=== PATIENT | female | born 1965 | race Caucasian/White ===

== ENCOUNTER → 2020-04-04 13:21 | Outpatient (BNVA) | payer MEDICAID, SELFPAY | PROVIDERS: PCP Family Medicine; Visit Provider Physician Assistant Medical | DX: Z76.89 Persons encountering health services in other specified circumstances (principal) | CPT/HCPCS: G0296 ==

== ENCOUNTER 2020-05-02 14:15 | Outpatient (REF) | payer MEDICAID, SELFPAY ==
--- NOTE | ~2020-05-02 | CT_ITS ---
EXAMINATION: CT CHEST SCREENING CLINICAL INFORMATION: Nicotine dependence. COMPARISON: Chest x-ray 02/07/2015. TECHNIQUE: Multidetector volumetric CT imaging of the chest is performed without contrast using low dose technique. Additional 2D coronal and sagittal reformatted images and axial 3D maximum intensity projection (MIP) images are generated on the CT workstation. This CT examination was performed using dose optimization techniques as appropriate, variously including the following: *Automated exposure control *Adjustment of mA and/or kV according to patient size (this includes techniques or standardized protocols for targeted exams where dose is matched to indication/reason for exam; i.e. extremities or head) *Use of iterative reconstruction technique DLP: 43 mGy-cm FINDINGS: LUNGS: There is centrilobular emphysema with bilateral medial apical cysts. There are no pulmonary nodules, mass, consolidation or groundglass density. There are punctate calcified nodules. 2 mm nodule left lower lobe adjacent to major fissure axial image 37, 1 mm nodule right lower lobe medially axial image 36/4, 1 minute calcification left lower lobe along the posterior pericardium, axial image 43/4 and 2 mm nodule in the lingula axial image 48/4. No noncalcified nodules visualized. MEDIASTINUM: Heart size and the great vessels are normal caliber. The central trachea and bronchi are widely patent. The thyroid lobes are symmetrical and normal. PLEURA: There is no pleural effusion. No pleural mass or thickening. AXILLA: No lymphadenopathy. UPPER ABDOMEN: Visualized liver, spleen, pancreas and bilateral adrenal glands are unremarkable. The gallbladder has been surgically removed. OSSEOUS STRUCTURES: No lytic or sclerotic process seen. CT/CT lung screening IMPRESSION: Diffuse emphysema calcified scattered nodules. No abnormal lymphadenopathy. ASSESSMENT: Lung-RADS category 2: Benign RECOMMENDATION: Low dose annual CT chest.
== END 2020-05-02 14:16 | disposition home or self-care (01) ==
LOC: HO.CT 14:15
PROVIDERS: PCP Family Medicine; Visit Provider Physician Assistant Medical
DX: Z12.2 Encounter for screening for malignant neoplasm of respiratory organs (principal); F17.210 Nicotine dependence, cigarettes, uncomplicated
CPT/HCPCS: 71271

== ENCOUNTER 2021-05-20 12:50 | Outpatient (REF) | payer MEDICAID, SELFPAY ==
--- NOTE | ~2021-05-20 | MM_ITS ---
EXAMINATION: MM SCREENING DIGITAL BREAST TOMOSYNTHESIS, BILATERAL CLINICAL INFORMATION: Screening. Asymptomatic. The lifetime risk of breast cancer based on the Tyrer-Cuzick Model is 5%. COMPARISON: Mammography: 10/05/2019, 09/29/2018, 09/16/2017 TECHNIQUE: Digital breast tomosynthesis is performed in both the craniocaudal and mediolateral oblique views along with computer-aided detection (CAD). Synthesized 2D images are generated from the tomosynthesis. FINDINGS: There are scattered areas of fibroglandular density (ACR BI-RADS breast composition Category b). There are no significant masses, abnormal calcifications, or other abnormalities. Parenchymal pattern is similar to prior studies. There is no developing density or architectural abnormality. There are scattered shifting fibroglandular parenchymal densities overall similar to prior studies. The axilla and skin contours are unremarkable. No significant changes. MM/MM tomosynthesis screening BI IMPRESSION: No mammographic evidence of malignancy. ASSESSMENT: BI-RADS 1: Negative RECOMMENDATION: Routine annual mammography screening. This patient's information was entered into a reminder system with a target due date for their next mammogram.
== END 2021-05-20 12:51 | disposition home or self-care (01) ==
LOC: HO.MAMMO 12:50
PROVIDERS: Visit Provider Family Medicine
DX: Z12.31 Encounter for screening mammogram for malignant neoplasm of breast (principal)
CPT/HCPCS: 77063; 77067

== ENCOUNTER 2022-02-23 17:21 | Emergency (ER) | payer MEDICAID, SELFPAY ==
--- NOTE | ~2022-02-23 | XR_ITS ---
EXAMINATION: XR CHEST CLINICAL INFORMATION: Chest pain COMPARISON: 05/02/2020 TECHNIQUE: 2 views of the chest were obtained. FINDINGS: The lungs are hyperinflated, suspicious for underlying COPD. No focal consolidation is seen. No evidence of pneumothorax, pleural effusion, or pulmonary edema. The cardiomediastinal contour is unremarkable. No acute osseous findings are seen. XR/XR chest 2V IMPRESSION: No acute cardiopulmonary findings. Hyperinflated lungs suspicious for COPD.
[2022-02-23 19:26] VITALS: BP 125/86; PULSE 73; RESP 18; TEMP 36.1; O2SAT 95; BMI 27.4
--- NOTE | 2022-02-23 19:26 | ED.GENADULT ---
HPI - General Adult General Chief complaint: General Medical <Sindi Bourgeois MD - Last Filed: 02/23/22 19:32> Stated complaint: coughing, chest pain, loss voice <Sindi Bourgeois MD - Last Filed: 02/23/22 19:32> Time Seen by Provider: 02/23/22 21:55 <Sindi Bourgeois MD - Last Filed: 02/23/22 19:32> Source: patient <CYRIL Mejia - Last Filed: 02/23/22 23:00> Mode of arrival: ambulatory <CYRIL Mejia - Last Filed: 02/23/22 23:00> History of Present Illness HPI narrative: 56-year-old female with past medical history of liver cirrhosis, HTN, nicotine dependence, presenting to the ED complaining of sore throat, productive cough, chills, and orthopnea x1 week. Reports coughing/SOB waking her up at night. Also reports chest discomfort with cough. Denies fever, ear pain, abdominal pain, nausea/vomiting, pedal edema, calf tenderness <CYRIL Mejia - Last Filed: 02/23/22 23:00> Onset (ago): week(s) <CYRIL Mejia - Last Filed: 02/23/22 23:00> Related Data Home medications: Previous Rx's Medication Instructions Recorded albuterol sulfate 90 mcg/actuation 2 puff inhalation Q4-6H PRN 02/23/22 aerosol inhaler shortness of breath or wheezing #6.7 grams azithromycin 250 mg tablet See Rx Instructions PO .COMPLEX #6 02/23/22 tabs benzonatate 100 mg capsule 100 mg PO TID PRN cough #14 caps 02/23/22 <Sindi Bourgeois MD - Last Filed: 02/23/22 19:32> Allergies/adverse reactions: Allergies Allergy/AdvReac Type Severity Reaction Status Date / Time No Known Allergies Allergy Mild NKA Verified 02/23/22 19:32 <Sindi Bourgeois MD - Last Filed: 02/23/22 19:32> Review of Systems Review of Systems: Constitutional: No Fever, + Chills, No Fatigue, No Malaise ENT/Mouth: No Ear Pain, No Nasal Congestion, No Sinus Pain, No Hoarseness, + sore throat, + Rhinorrhea, No Swallowing Difficulty Eyes: No Eye Pain, No Swelling, No Redness, No Discharge, No Vision Changes Cardiovascular: + Chest Pain when coughing, + SOB, No Dyspnea on Exertion, + Orthopnea, No Edema, No Palpitations Respiratory: + Cough, + Sputum, No Wheezing, + Dyspnea Gastrointestinal: No Nausea, No Vomiting, No Diarrhea, No Constipation, No Abdominal pain Genitourinary: No Dysuria, No Urinary Frequency, No Hematuria, No Urinary Incontinence/retention, No Urgency, No Flank Pain Musculoskeletal: No joint pain, No Myalgias, No Joint Swelling Skin: No Skin Lesions, No rash Neuro: No Weakness, No Dizziness, No Headache <CYRIL Mejia - Last Filed: 02/23/22 23:00> Yes all other systems are reviewed and are negative <CYRIL Mejia - Last Filed: 02/23/22 23:00> Constitutional: Constitutional: Reports as per HPI <CYRIL Mejia - Last Filed: 02/23/22 23:00> FOR[facility]LY [facility], [facility] Past Medical History Attestation statement: The following information was validated with the patient. <CYRIL Mejia - Last Filed: 02/23/22 23:00> Medical History: Medical History Cirrhosis of liver Hypertension Nicotine dependence, cigarettes, uncomplicated Tubular adenoma of colon <Sindi Bourgeois MD - Last Filed: 02/23/22 19:32> Surgical History: Surgical History Hx laparoscopic cholecystectomy <Sindi Bourgeois MD - Last Filed: 02/23/22 19:32> Social History Social History: Social History Alcohol intake: current Alcohol intake frequency: does not drink Cigarette Packs Per Day: 1 Cigarettes Per Day: 20 Years Smoked: 38, onset 13yo Advance Directives: No Advance Directives Information Provided: No <Sindi Bourgeois MD - Last Filed: 02/23/22 19:32> Physical Exam ED Vital Signs: Vital Signs - 24 hr 02/23/22 19:26 Temperature 97 F Pulse Rate 73 Respiratory Rate 18 Blood Pressure 125/86 Pulse Oximetry 95 Oxygen Delivery Method Room Air BMI result Body Mass Index 27.4 <Sindi Bourgeois MD - Last Filed: 02/23/22 19:32> Vital Signs - 24 hr 02/23/22 19:26 Temperature 97 F Pulse Rate 73 Respiratory Rate 18 Blood Pressure 125/86 Pulse Oximetry 95 Oxygen Delivery Method Room Air BMI result Body Mass Index 27.4 <CYRIL Mejia - Last Filed: 02/23/22 23:00> Const General: cooperative <CYRIL Mejia - Last Filed: 02/23/22 23:00> Orientation/consciousness: patient oriented x3 <CYRIL Mejia - Last Filed: 02/23/22 23:00> Limitations: no limitations <CYRIL Mejia - Last Filed: 02/23/22 23:00> HENMT Head: Yes normal to inspection and Yes atraumatic <CYRIL Mejia - Last Filed: 02/23/22 23:00> Ears: hearing grossly normal bilaterally <CYRIL Mejia - Last Filed: 02/23/22 23:00> General nose exam: Normal external nose present <CYRIL Mejia - Last Filed: 02/23/22 23:00> Face and sinus: Yes normal facial exam <CYRIL Mejia - Last Filed: 02/23/22 23:00> Throat: Yes posterior oropharynx normal, Yes tonsils normal, Yes uvula midline and No peritonsillar mass <CYRIL Mejia - Last Filed: 02/23/22 23:00> Eyes General: appearance normal, both eyes and all related structures <CYRIL Mejia - Last Filed: 02/23/22 23:00> EOM: EOMs intact bilaterally <CYRIL Mejia - Last Filed: 02/23/22 23:00> Neck Neck: Yes normal visual inspection and Yes no meningeal signs <CYRIL Mejia - Last Filed: 02/23/22 23:00> Resp Effort & Inspection: normal respiratory effort and no respiratory distress <CYRIL Mejia - Last Filed: 02/23/22 23:00> Auscultation: clear to auscultation bilaterally, no crackles, no rales and no rhonchi <Aminata Funk PA - Last Filed: 02/23/22 23:00> Cardio Rate: regular rate <Aminata Funk PA - Last Filed: 02/23/22 23:00> Heart sounds: S1 normal heart sound present and S2 normal heart sound present <Aminata Funk PA - Last Filed: 02/23/22 23:00> GI Inspection: Yes normal to inspection <Aminata Funk PA - Last Filed: 02/23/22 23:00> Palpation (GI): Soft to palpation, nontender, no guarding and not rigid <Aminata Funk PA - Last Filed: 02/23/22 23:00> Skin Rashes: no rashes <Aminata Funk PA - Last Filed: 02/23/22 23:00> Wounds: no wounds <Aminata Funk PA - Last Filed: 02/23/22 23:00> Neuro General: patient oriented x3, tone normal and no meningeal signs <Aminata Funk PA - Last Filed: 02/23/22 23:00> Gait exam (Neuro): Normal gait present <Aminata Funk PA - Last Filed: 02/23/22 23:00> Extrem General: Yes normal to inspection, Yes no pedal edema, Yes no calf tenderness and Yes normal gait <Aminata Funk PA - Last Filed: 02/23/22 23:00> Course Course Course Narrative: 56 SOB, sore throat, body aches, productive cough, every day smoker. VS Reviewed GEN: NAD EARS: wnl THROAT: wnl LUNGS: cough, scattered rhonchi, CTAB CVS: RRR ABD: NT/ND <Sindi Bourgeois MD - Last Filed: 02/23/22 19:32> 56 SOB, sore throat, body aches, productive cough, every day smoker. VS Reviewed GEN: NAD EARS: wnl THROAT: wnl LUNGS: cough, scattered rhonchi, CTAB CVS: RRR ABD: NT/ND -2239--COVID-19/influenza/RSV negative XR chest 2V IMPRESSION: No acute cardiopulmonary findings. Hyperinflated lungs suspicious for COPD. >> patient denies known history of COPD, discussed x-ray findings with patient, recommended close PCP/pulmonology follow-up Results discussed with patient including worrisome signs and symptoms and strict return precautions, and when to return to the emergency department. They verbalized understanding and feel safe for discharge at this time. <CYRIL Mejai - Last Filed: 02/23/22 23:00> Medications Administered Discontinued Medications Generic Name Dose Route Start Last Admin Trade Name Freq PRN Reason Stop Dose Admin Benzonatate 200 mg 02/23/22 19:31 02/23/22 19:35 Benzonatate 100 Mg Capsule PO 02/23/22 19:32 200 mg ONCE ONE Administration <Sindi Bourgeois MD - Last Filed: 02/23/22 19:32> Medications Administered Discontinued Medications Generic Name Dose Route Start Last Admin Trade Name Freq PRN Reason Stop Dose Admin Benzonatate 200 mg 02/23/22 19:31 02/23/22 19:35 Benzonatate 100 Mg Capsule PO 02/23/22 19:32 200 mg ONCE ONE Administration <CYRIL Mejia - Last Filed: 02/23/22 23:00> Medical Decision Making Medical Decision Making MDM Narrative: 56-year-old female with past medical history of liver cirrhosis, HTN, nicotine dependence, presenting to the ED complaining of sore throat, productive cough, chills, and orthopnea x1 week. On exam vital signs stable, lungs CTA, no pedal edema/calf tenderness, + strong cigarette smoke odor. Concern for undiagnosed COPD/chronic lung disease vs bronchitis vs pneumonia vs viral syndrome. Low suspicion for ACS/PE. No evidence of CHF Plan: COVID-19/influenza/RSV testing, CXR <CYRIL Mejia - Last Filed: 02/23/22 23:00> Differential Diagnoses: Differential diagnosis Differential Diagnosis: The differential diagnosis associated with the patient?s presentation includes: As above <CYRIL Mejia - Last Filed: 02/23/22 23:00> Lab Attestation: I reviewed the patient's lab results. <CYRIL Mejia - Last Filed: 02/23/22 23:00> Independent historian (e.g., spouse, EMS, friend): Independent historian (e.g., spouse, EMS, friend) Clinical information obtained from an independent historian. History obtained from or confirmed by: Friend <CYRIL Mejia - Last Filed: 02/23/22 23:00> Non-ED record review: Review of External (Non-ED) Record External record reviewed:: Office record <CYRIL Mejia - Last Filed: 02/23/22 23:00> Chronic conditions affecting care (e.g., diabetes, HTN): Chronic conditions affecting care (e.g., diabetes, HTN) Patient?s care impacted by: Hypertension <CYRIL Mejia - Last Filed: 02/23/22 23:00> Care significantly affected by Social Determinants of Health (e.g., housing and economic circumstances, unemployment): Care affected by Social Determinants of Health Patient's care limited by Social Determinants of Health: Other Social Determinant of Health (Cigarette smoking) <CYRIL Mejia - Last Filed: 02/23/22 23:00> Discharge Plan Discharge Clinical Impression: Bronchitis <Sindi Bourgeois MD - Last Filed: 02/23/22 19:32> Patient Disposition: Home, Self-Care <Sindi Bourgeois MD - Last Filed: 02/23/22 19:32> Instructions: Acute Bronchitis (ED) <Sindi Bourgeois MD - Last Filed: 02/23/22 19:32> Additional Instructions: Your x-ray shows hyperinflated lungs suspicious for COPD. You tested negative for COVID-19, the flu, and RSV. Azithromycin as an antibiotic please take as prescribed Use albuterol inhaler as needed for shortness of breath/wheezing. Mariann Callejas for cough. Please of close follow-up with her doctor and pulmonology. In addition follow-up with the ENT as needed If her symptoms persist or worsen return to the emergency department <Sindi Bourgeois MD - Last Filed: 02/23/22 19:32> Prescriptions: New benzonatate 100 mg capsule 100 mg PO TID PRN (Reason: cough) Qty: 14 0RF albuterol sulfate 90 mcg/actuation HFA aerosol inhaler 2 puff inhalation Q4-6H PRN (Reason: shortness of breath or wheezing) Qty: 6.7 0RF azithromycin 250 mg tablet See Rx Instructions .ROUTE .COMPLEX Qty: 6 0RF Rx Instructions: take 500 mg today (day 1), then 250 mg for 4 days (days 2-5) <Sindi Bourgeois MD - Last Filed: 02/23/22 19:32> Referrals: [facility] Pulmonology Services [Provider Group] Nely Delgado MD [Primary Care Provider] - 3 days <Sindi Bourgeois MD - Last Filed: 02/23/22 19:32> Interventions: ED Discharge Assessment Last Done: 02/23/22 22:43 <Sindi Bourgeois MD - Last Filed: 02/23/22 19:32> Discharge Date/Time: 02/23/22 22:58 <Sindi Bourgeois MD - Last Filed: 02/23/22 19:32>
[2022-02-23] MEDS: Benzonatate 100 MG CAPSULE 200 MG PO (19:35)
[2022-02-23 22:36] LABS: Influenza A PCR NEGATIVE (Negative); Influenza B PCR NEGATIVE (Negative); Resp Syncy Virus RNA Qual PCR NEGATIVE (Negative); SARS COV2 PCR INHOUSE NEGATIVE (Negative)
== END 2022-02-23 22:58 | disposition home or self-care (01) ==
PROVIDERS: Emergency Provider Student in an Organized Health Care Education/Training Program; PCP Family Medicine
DX: J40 Bronchitis, not specified as acute or chronic (principal); R05.9 Cough, unspecified; R07.89 Other chest pain; I10 Essential (primary) hypertension; F17.210 Nicotine dependence, cigarettes, uncomplicated; Z71.6 Tobacco abuse counseling; Z20.822 Contact with and (suspected) exposure to COVID-19
CPT/HCPCS: 0241U; 71046; 99282; 99283

== ENCOUNTER 2022-05-20 13:21 | Emergency (ER) | payer MEDICAID, SELFPAY ==
--- NOTE | ~2022-05-20 | XR_ITS ---
EXAMINATION: XR CHEST CLINICAL INFORMATION: Shortness of breath. COMPARISON: 02/23/2022 chest radiographs. TECHNIQUE: 2 views of the chest were obtained. FINDINGS: No significant abnormality is noted involving the heart, lungs, mediastinum, bony thorax or soft tissues. XR/XR chest 2V IMPRESSION: No acute cardiopulmonary process.
[2022-05-20 13:30] VITALS: BP 125/87; PULSE 70; RESP 20; TEMP 36.7; O2SAT 94; BMI 25.6
--- NOTE | 2022-05-20 13:38 | ED.GENADULT ---
HPI - General Adult General Chief complaint: Upper Respiratory Symptoms <Sergio Bryant - Last Filed: 05/20/22 13:41> Stated complaint: sore throat <Sergio Bryant - Last Filed: 05/20/22 13:41> Time Seen by Provider: 05/20/22 15:07 <Sergio Bryant - Last Filed: 05/20/22 13:41> Source: patient <CYRIL Alvarenga - Last Filed: 05/20/22 19:06> Mode of arrival: ambulatory <CYRIL Alvarenga - Last Filed: 05/20/22 19:06> Limitations: no limitations <CYRIL Alvarenga Last Filed: 05/20/22 19:06> History of Present Illness HPI narrative: 56 y/o female with history of liver cirrhosis, hypertension, longtime active smoker, most likely underlying diagnosis of COPD who presents to the ER for evaluation of acute on chronic laryngitis. Patient reports for the last week or so she has had worsening of her hoarse voice along with body aches and bilateral ear pain. She also has a sore throat. She states she has had a hoarse voice for the last 2 or 3 months. She saw her PCP at the beginning of this but never had it addressed by her PCP. She reports her hoarse voice is worse the last week or so. She continues to smoke heavy cigarettes. She denies any shortness of breath or chest pain. She denies any difficulty swallowing or dysphagia. Her partner does report that she coughs at times after eating. She denies any oral tobacco use. <CYRIL Alvarenga - Last Filed: 05/20/22 19:06> MD complaint: sore throat, loss of voice <CYRIL Alvarenga - Last Filed: 05/20/22 19:06> Onset (ago): week(s) <CYRIL Alvarenga Last Filed: 05/20/22 19:06> Location: mouth and neck <CYRIL Alvarenga - Last Filed: 05/20/22 19:06> Radiation: non-radiation <CYRIL Alvarenga Last Filed: 05/20/22 19:06> Severity: moderate <CYRIL Alvarenga Last Filed: 05/20/22 19:06> Quality: aching <CYRIL Alvarnega - Last Filed: 05/20/22 19:06> Pain Consistency: constant <CYRIL Alvarenga - Last Filed: 05/20/22 19:06> Relieving factors: none <CYRIL Alvarenga - Last Filed: 05/20/22 19:06> Exacerbating factors: none <CYRIL Alvarenga - Last Filed: 05/20/22 19:06> Associated symptoms: denies other symptoms <CYRIL Alvarenga - Last Filed: 05/20/22 19:06> Treatments prior to arrival: none <CYRIL Alvarenga - Last Filed: 05/20/22 19:06> Related Data Home medications: Previous Rx's Medication Instructions Recorded albuterol sulfate 90 mcg/actuation 2 puff inhalation Q4-6H PRN 02/23/22 aerosol inhaler shortness of breath or wheezing #6.7 grams azithromycin 250 mg tablet See Rx Instructions PO .COMPLEX #6 02/23/22 tabs benzonatate 100 mg capsule 100 mg PO TID PRN cough #14 caps 02/23/22 benzonatate 100 mg capsule 100 mg PO TID PRN cough #30 caps 05/20/22 doxycycline monohydrate 100 mg 100 mg PO BID #14 caps 05/20/22 capsule hydrocodone-homatropine 5 mg-1.5 5 ml PO Q4-6H PRN cough #60 mL 05/20/22 mg/5 mL (5 mL) oral syrup (Hycodan) ibuprofen 600 mg tablet 600 mg PO Q8H PRN fever or pain 05/20/22 #10 tabs prednisone 20 mg tablet 40 mg PO DAILY #10 tabs 05/20/22 <Sergio Bryant - Last Filed: 05/20/22 13:41> Allergies/adverse reactions: Allergies Allergy/AdvReac Type Severity Reaction Status Date / Time No Known Allergies Allergy Mild NKA Verified 02/23/22 19:32 <Sergio Bryant - Last Filed: 05/20/22 13:41> Review of Systems Review of Systems: Yes all other systems are reviewed and are negative <CYRIL Alvarenga - Last Filed: 05/20/22 19:06> [facility] Past Medical History Medical History: Medical History Cirrhosis of liver Hypertension Nicotine dependence, cigarettes, uncomplicated Tubular adenoma of colon <Sergio Bryant - Last Filed: 05/20/22 13:41> Surgical History: Surgical History Hx laparoscopic cholecystectomy <Sergio Bryant - Last Filed: 05/20/22 13:41> Social History Social History: Social History Alcohol intake: current Alcohol intake frequency: does not drink Cigarette Packs Per Day: 1 Cigarettes Per Day: 20 Years Smoked: 38, onset 13yo Advance Directives: No <Sergio Bryant - Last Filed: 05/20/22 13:41> Physical Exam ED Vital Signs: Vital Signs - 24 hr 05/20/22 13:30 Temperature 98.0 F Pulse Rate 70 Respiratory Rate 20 Blood Pressure 125/87 Pulse Oximetry 94 Oxygen Delivery Method Room Air BMI result Body Mass Index 25.6 <Sergio Bryant - Last Filed: 05/20/22 13:41> Vital Signs - 24 hr 05/20/22 13:30 Temperature 98.0 F Pulse Rate 70 Respiratory Rate 20 Blood Pressure 125/87 Pulse Oximetry 94 Oxygen Delivery Method Room Air BMI result Body Mass Index 25.6 <CYRIL Alvarenga - Last Filed: 05/20/22 19:06> Appearance: Alert. Oriented X3. No acute distress. Most heavily of cigarette smoke HEENT: normal external inspection. Mild posterior pharyngeal erythema, no tonsillar swelling or exudate. Uvula midline. Neck: Normal inspection, trachea midline. No appreciated thyromegaly or palpable mass. Harsh voice noted CVS: Normal heart rate and rhythm. Pulses normal. Respiratory: No respiratory distress. Lungs are coarse throughout, no noted wheezing or rhonchi. Skin: Skin warm and dry. Normal skin color. Normal skin turgor. No rashes. Extremities: Normal inspection x4 Neuro: Oriented X 3. No motor deficit. No sensory deficit. <CYRIL Alvarenga - Last Filed: 05/20/22 19:06> Course Course Course Narrative: RME- 56-year-old female presents for evaluation of sore throat and hoarse voice. Symptoms started 2 months ago. The patient was seen here and was referred to otolaryngology but did not follow-up with an appointment. She is active smoker. Plan for chest x-ray to evaluate for nodules or masses. And non strep throat test and COVID test. Encouraged patient to make sure he follows up with distance learning program coordinator especially given her smoking history. I discussed with her there was some concern for masses and/or cancer that needs to be followed up. There is no evidence of airway compromise today <Sergio Bryant - Last Filed: 05/20/22 13:41> Reevaluation(s) Reevaluation #1: Patient negative for strep throat and COVID-19. Will treat patient's laryngitis with steroids and voice rest. She will follow-up with her primary care doctor and get surveillance CT scans of her chest. She will also inquire about imaging of the neck. Will refer to ENT for vocal cord evaluation. Patient agrees with plan. Stable for discharge home <CYRIL Alvarenga - Last Filed: 05/20/22 19:06> Medical Decision Making Differential Diagnosis Differential Diagnoses: The differential diagnosis associated with the presentation includes <CYRIL Alvarenga - Last Filed: 05/20/22 19:06> Laryngitis, bronchitis, vocal cord dysfunction, vocal cord mass, head neck cancer, COPD, COPD exacerbation, acute viral syndrome <CYRIL Alvarenga - Last Filed: 05/20/22 19:06> Lab Data MDM Lab Attestation statement: I reviewed the patient's lab results. <CYRIL Alvarenga - Last Filed: 05/20/22 19:06> Labs: Lab Results 05/20/22 05/20/22 Range/Units 14:48 14:48 COVID-19 (ELY) Negative (Negative) COVID-19 Clin Com See Note S. pyogenes GrpA RADHA Negative (Negative) <Sergio Bryant - Last Filed: 05/20/22 13:41> Lab Results 05/20/22 05/20/22 Range/Units 14:48 14:48 COVID-19 (ELY) Negative (Negative) COVID-19 Clin Com See Note S. pyogenes GrpA RADHA Negative (Negative) <CYRIL Alvarenga - Last Filed: 05/20/22 19:06> Independent Interpretation Interpretation: Chest x-ray reviewed, no obvious infiltrate or pneumonia, no nodules or masses noted <CYRIL Alvarenga - Last Filed: 05/20/22 19:06> Radiology Impression Discussion of test interpretation with radiology: I have reviewed the radiologist's reading. <CYRIL Alvarenga - Last Filed: 05/20/22 19:06> Radiologist Impression: XR/XR chest 2V IMPRESSION: No acute cardiopulmonary process. <CYRIL Alvarenga - Last Filed: 05/20/22 19:06> Independent Historian Clinical information obtained from an independent historian. History obtained from or confirmed by: Spouse <CYRIL Alvarenga - Last Filed: 05/20/22 19:06> External Record Review External record reviewed: Office record, Outpatient record and Prior outpatient labs <CYRIL Alvarenga - Last Filed: 05/20/22 19:06> Tests considered The following testing was considered but not selected: CT of the soft tissues of the neck considered, not an emergent need in the emergency department today. <CYRIL Alvarenga - Last Filed: 05/20/22 19:06> Prescription Management I considered prescription management with: Pain Medication and Antibiotic <CYRIL Alvarenga - Last Filed: 05/20/22 19:06> Chronic Conditions Patient?s care impacted by: Other (Nicotine dependence) <CYRIL Alvarenga - Last Filed: 05/20/22 19:06> Critical Care Time Critical Care Time Critical Care Time: No <CYRIL Alvarenga - Last Filed: 05/20/22 19:06> Discharge Plan Discharge Clinical Impression: Laryngitis <Sergio Bryant - Last Filed: 05/20/22 13:41> Patient Disposition: Home, Self-Care <Sergio Bryant - Last Filed: 05/20/22 13:41> Instructions: Laryngitis (ED) <Sergio Bryant - Last Filed: 05/20/22 13:41> Additional Instructions: Your chest x-ray today was normal. You tested negative for COVID and strep throat. You most likely have another viral illness causing exacerbation of your symptoms. Recommend voice rest. Minimal use of your voice for the next 48 hours. Take the prescribed medications as directed Follow up with your primary care doctor as soon as possible. Recommend following up with the ENT doctor for further evaluation of your laryngitis. Call for an appointment Do your best to quit smoking If you develop new or worsening symptoms call 911 or come back to the ER for further evaluation. <Sergio Bryant - Last Filed: 05/20/22 13:41> Prescriptions: New prednisone 20 mg tablet 40 mg PO DAILY Qty: 10 0RF doxycycline monohydrate 100 mg capsule 100 mg PO BID Qty: 14 0RF ibuprofen 600 mg tablet 600 mg PO Q8H PRN (Reason: fever or pain) Qty: 10 0RF benzonatate 100 mg capsule 100 mg PO TID PRN (Reason: cough) Qty: 30 0RF hydrocodone-homatropine [Hycodan] 5-1.5 mg/5 mL (5 mL) syrup 5 ml PO Q4-6H PRN (Reason: cough) Qty: 60 0RF Rx Instructions: Partial Fill upon patient request. No Action benzonatate 100 mg capsule 100 mg PO TID PRN (Reason: cough) Qty: 14 0RF albuterol sulfate 90 mcg/actuation HFA aerosol inhaler 2 puff inhalation Q4-6H PRN (Reason: shortness of breath or wheezing) Qty: 6.7 0RF azithromycin 250 mg tablet See Rx Instructions .ROUTE .COMPLEX Qty: 6 0RF Rx Instructions: take 500 mg today (day 1), then 250 mg for 4 days (days 2-5) <Sergio Bryant - Last Filed: 05/20/22 13:41> Referrals: Nely Delgado MD [Primary Care Provider] - (laryngitis x3 months, smoker, needs surveillance chest CT and neck CT, pending ENT referral) Alcon Wei [Physician] - <Sergio Bryant - Last Filed: 05/20/22 13:41> Interventions: ED Discharge Assessment Last Done: 05/20/22 15:54 <Sergio Bryant - Last Filed: 05/20/22 13:41> Discharge Date/Time: 05/20/22 15:55 <Sergio Bryant - Last Filed: 05/20/22 13:41>
[2022-05-20 15:04] LABS: IDNOW Serial# 6674DD1D; Strep A Nucleic Acid Negative (Negative)
[2022-05-20 15:16] LABS: COVID-19 Test Negative (Negative); IDNOW Serial# BCCEAD1C
== END 2022-05-20 15:55 | disposition home or self-care (01) ==
PROVIDERS: Physician Assistant; Emergency Provider Student in an Organized Health Care Education/Training Program; PCP Family Medicine
DX: J04.0 Acute laryngitis (principal); Z20.822 Contact with and (suspected) exposure to COVID-19; Z20.828 Contact with and (suspected) exposure to other viral communicable diseases; Z79.899 Other long term (current) drug therapy
CPT/HCPCS: 36415; 71046; 87635; 87651; 99282; 99283

== ENCOUNTER 2022-07-15 10:48 | Outpatient (REF) | payer MEDICAID, SELFPAY ==
--- NOTE | ~2022-07-15 | CT_ITS ---
EXAMINATION: CT CHEST WITH CONTRAST CLINICAL INFORMATION: Throat cancer COMPARISON: Previous chest CT April 2020 TECHNIQUE: Multidetector volumetric CT imaging of the chest was obtained after the administration of 65 mL of Omnipaque 350 intravenous contrast without immediate adverse reactions. Axial MIP volume rendering provided. Sagittal and coronal reformatted images were obtained. This CT examination was performed using dose optimization techniques as appropriate, variously including the following: *Automated exposure control *Adjustment of mA and/or kV according to patient size (this includes techniques or standardized protocols for targeted exams where dose is matched to indication/reason for exam; i.e. extremities or head) *Use of iterative reconstruction technique DLP: 161 mGy-cm FINDINGS: LUNGS: There is evidence of emphysema. There is a new irregularly-shaped nodule in the right middle lobe measuring 6 x 11 mm axial image 150 series 7. There is a new 5 mm peripheral or subpleural right middle lobe nodule axial image 162 series 7. There is a new 2 x 5 mm peripheral or subpleural right middle lobe nodule axial image 161 series 7. There is a a new 5 x 7 mm central right middle lobe nodule axial image 146 series 7. There is a new irregularly-shaped 7 x 10 mm anterior segment left upper lobe nodule axial image 133 series 7. There is a 2 mm calcified right lower lobe nodule axial image 138 series 7 and 3 mm peripheral or subpleural calcified right lower lobe nodule that is stable. There is a calcified 5 mm left lower lobe nodule adjacent to the fissure axial image 138 series 7 that is stable. MEDIASTINUM: There are small mediastinal lymph nodes similar to previous exam. There are small bilateral hilar lymph nodes. Comparison with old exam without contrast is difficult due to lack of IV contrast. No enlarged lymph nodes.. Normal heart size. Mild coronary artery calcification. No pericardial effusion. Normal caliber thoracic aorta. Normal thyroid gland. PLEURA: There is no pleural effusion. No pleural mass or thickening. AXILLA: No lymphadenopathy. UPPER ABDOMEN: Question mild cirrhotic changes of the liver. The gallbladder has been removed. Small bilateral renal cysts. No imaging follow-up recommended. OSSEOUS STRUCTURES: Schmorl's nodes versus mild compression fractures of the lower thoracic spine and L1. CT/CT chest w IV con IMPRESSION: Emphysema. New right middle lobe and left upper lobe nodules. Infectious, inflammatory and neoplastic process should be considered. Chest CT follow-up as per protocol. Fleischner guidelines were followed.
[2022-07-15] MEDS: iohexoL 350 MG/ML 100 ML INFUS..BTL 65 ML IV (11:28)
== END 2022-07-15 10:49 | disposition home or self-care (01) ==
LOC: HO.CT 10:48
PROVIDERS: PCP Family Medicine; Visit Provider Internal Medicine Medical Oncology
DX: C14.0 Malignant neoplasm of pharynx, unspecified (principal)
CPT/HCPCS: 71260; Q9967

== ENCOUNTER 2023-04-29 12:28 | Emergency (ER) | payer MEDICAID, SELFPAY ==
[2023-04-29] VITALS (17 sets, daily range): BP systolic 127–213; BP diastolic 86–112; PULSE 101–126; RESP 14–27; TEMP 36.1–37.1; O2SAT 74–99; BMI 19.6
--- NOTE | ~2023-04-29 | XR_ITS ---
EXAMINATION: XR CHEST CLINICAL INFORMATION: Shortness of breath COMPARISON: 05/20/2022 TECHNIQUE: 2 views of the chest were obtained. FINDINGS: There is new Port-A-Cath seen on the right with the tip over the SVC. No significant abnormality is noted involving the heart, lungs, mediastinum, bony thorax or soft tissues. XR/XR chest 2V IMPRESSION: Unremarkable examination.
--- NOTE | ~2023-04-29 | CT_ITS ---
EXAMINATION: CT SOFT TISSUE NECK WITH CONTRAST CT ANGIOGRAM OF THE CHEST WITH AND WITHOUT CONTRAST (CT PULMONARY ANGIOGRAM FOR PE) CLINICAL INFORMATION: Stridor. Pleuritic chest pain. Result history of cancer. COMPARISON: Neck radiographs from 05/09/2023. CT chest from 07/15/2022. CT neck from 06/23/2022. TECHNIQUE: Prior to contrast administration, noncontrast localization images were obtained. Subsequently, multidetector volumetric imaging was performed from the thoracic inlet to below the diaphragms following the administration of 65 mL Omnipaque 350 intravenous contrast. Additional multidetector helical imaging was performed in the axial plane through the neck. No contrast reaction reported. Sagittal, coronal, and MIP oblique sagittal reformatted images were obtained on the CT workstation, uploaded to PACS, and reviewed. This CT examination was performed using dose optimization techniques as appropriate, variously including the following: *Automated exposure control. *Adjustment of mA and/or kV according to patient size (this includes techniques or standardized protocols for targeted exams where dose is matched to indication/reason for exam; i.e. extremities or head). *Use of iterative reconstruction technique. DLP: 542 mGy-cm FINDINGS: NECK: Mild to moderate fat stranding throughout the anterior soft tissues of the neck. Moderate mucosal edema of the epiglottis and laryngeal structures throughout. There does appear to be a degree of irregularity of the larger structures; however, evaluation is limited secondary to ongoing respiratory motion during evaluation. There appears to be a significant decrease in prominence of the previously demonstrated 2.5 cm enhancing mass along the right lateral and anterior guaman of the larynx. No significant cutaneous thickening. No discrete fluid collection within the deep tissues of the neck. The premaxillary, retromaxillary, pterygopalatine fossa, orbital apical, parapharyngeal, and prelaryngeal adipose tissue is maintained. Normal appearance of the parotid, submandibular, and thyroid glands. Scattered subcentimeter lymph nodes bilaterally, none of which are pathologically enlarged or abnormally enhancing. No demonstrated focal lesion or abnormal enhancement within the intrinsic tissues of the tongue or floor of mouth. Normal mucosal contours of the pharynx without abnormal enhancement. Normal appearance of the hyoid bone, thyroid cartilage, or cartilaginous trachea. The airways remains widely patent. No radiopaque foreign bodies. The atlantooccipital and atlantoaxial articulations remain well aligned. There is anatomic alignment of the vertebral bodies and posterior elements. No evidence of acute fracture or subluxation of the cervical spine. The vertebral body heights are maintained. The intervertebral disc spaces are maintained. No evidence of epidural collection. There is no prevertebral soft tissue swelling. Normal opacification of the cervical arterial and venous structures. The visualized portion of the skull base is without significant abnormalities. Mild mucosal thickening of the paranasal sinuses. The mastoid air cells and middle ear cavities are clear. CTA CHEST QUALITY OF STUDY/CONTRAST BOLUS: Satisfactory. PULMONARY ARTERIES: No central or segmental pulmonary emboli. THORACIC AORTA: Normal contour and caliber with mild calcific atherosclerotic disease. Classic 3 vessel branching pattern of the aortic arch. No evidence of aortic dissection. LUNG: Moderate centrilobular emphysema. Moderate consolidation of the right greater than left lungs. Mild interlobular septal thickening. No additional focal consolidative process. Mucus plugging of the right greater than left lower lobe bronchi. The remaining airways remain largely patent. PLEURA: No pleural effusion or pneumothorax. MEDIASTINUM: Normal heart size. No pericardial effusion. Mildly prominent perihilar lymphoid tissue. No pathologically enlarged mediastinal lymphadenopathy. No evidence of septal bowing or right heart strain. Coronary artery calcifications: Present - mild. CHEST WALL/AXILLA: No axillary or internal mammary lymphadenopathy. OSSEOUS STRUCTURES: No acute or suspicious osseous abnormality. Chronic mild compression deformity of the T12 and L1 superior endplates. Chronic Schmorl's nodes at T10 and T12. UPPER ABDOMEN: No demonstrated significant abnormalities of the visualized upper abdomen. No reflux of contrast into the hepatic veins to suggest elevated right heart pressures. CT/CT soft tissue neck w IV con IMPRESSION: 1. No evidence of pulmonary embolism. 2. Moderate emphysema. Moderate consolidation of the right greater than left lung bases with mucus plugging of the right greater than left lower lobe bronchi. This appearance suggests a developing infectious/inflammatory process, potentially in the setting of aspiration event. 3. Compared to exam from 2022, there does appear to be significantly decreased in prominence of the previously demonstrated 2.5 cm enhancing mass along the right lateral and anterior guaman of the larynx. Apparent post treatment changes with moderate mucosal edema of the epiglottis and laryngeal structures throughout. There does appear to be a degree of irregularity of the larger structures; however, evaluation is limited secondary to ongoing respiratory motion during evaluation. No demonstrated pathologically enlarged cervical lymphadenopathy. VTE: negative.
--- NOTE | ~2023-04-29 | XR_ITS ---
EXAMINATION: XR SOFT TISSUE NECK CLINICAL INDICATION: Laryngeal carcinoma COMPARISON: None available. TECHNIQUE: 2 views of the soft tissue neck were obtained. FINDINGS: Soft tissue films of the neck demonstrate a normal larynx, pharynx and upper trachea. No soft tissue swelling or opaque foreign body is demonstrated. XR/XR soft tissue neck IMPRESSION: Unremarkable examination.
--- NOTE | 2023-04-29 12:44 | ED.GENADULT ---
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 She notes for the past 2 nights she has sore throat, body aches, cough, chills and does not feel well. She notes her sister is also sick. She has had thrush before during treatments. It hurts to breathe as well. MD complaint: chest pain, trouble breathing, sore throat Onset (ago): day(s) (2) Location: mouth and chest Radiation: non-radiation Severity: moderate Quality: stabbing and aching Pain Consistency: constant Relieving factors: none Exacerbating factors: movement and other (inspiration) Associated symptoms: fever/chills, loss of appetite, malaise, nausea/vomiting and weakness Treatments prior to arrival: none Related Data Home Medications Medication Instructions Recorded Confirmed acetaminophen 500 mg tablet 500 mg PO TID 06/28/22 07/27/22 calcium carbonate 600 mg-vitamin 1 tab PO BID 06/28/22 07/27/22 D3 10 mcg (400 unit) tablet fluticasone propionate 110 2 puff inhalation BID 06/28/22 07/27/22 mcg/actuation HFA aerosol inhaler (Flovent HFA) furosemide 20 mg tablet 20 mg PO DAILY 06/28/22 07/27/22 multivitamin with folic acid 400 1 tab PO DAILY 06/28/22 07/27/22 mcg tablet (Daily-Andrei (with folic acid)) propranolol 20 mg tablet 20 mg PO BID 06/28/22 07/27/22 sertraline 100 mg tablet 100 mg PO DAILY 06/28/22 07/27/22 Allergies Allergy/AdvReac Type Severity Reaction Status Date / Time No Known Allergies Allergy Mild NKA Verified 04/29/23 12:47 Review of Systems Review of Systems: Constitutional : No Fever, pos Chills, pos Fatigue ENT/Mouth : pos sore throat, No Rhinorrhea Eyes: No Eye Pain, No Swelling, No Redness Cardiovascular : pos Chest Pain, pos SOB, No Dyspnea on Exertion Respiratory : pos Cough, No Sputum Gastrointestinal : pos Nausea, No Vomiting, No Diarrhea, No abdominal Pain Genitourinary : No Dysuria, No Urinary Frequency, No Hematuria, Musculoskeletal : No joint pain, No Myalgias, No Joint Swelling Skin : No Skin Lesions, No rash Neuro : pos Weakness, No Numbness, No Dizziness, no Headache Psych : No Anxiety/Panic, No Depression Heme/Lymph: No Bruising, No Bleeding,No Lymphadenopathy Endocrine : No Polyuria, No Polydipsia All other systems reviewed and are negative [facility] Past Medical History Attestation statement: The following information was validated with the patient. Source: old records reviewed Medical History Nicotine dependence, cigarettes, uncomplicated Tubular adenoma of colon Hypertension Cirrhosis of liver Surgical History Hx laparoscopic cholecystectomy Social History Social History Household Members: None Alcohol intake: current Alcohol intake frequency: does not drink Patient Tobacco Use Status: Current everyday Tobacco user Cigarette Packs Per Day: 1 Years Smoked: 38, onset 13yo Smoked in Last 30 Days: Yes Use of substances other than those prescribed or required for medical reasons: No Advance Directives: No Advance Directives Information Provided: No Patient : No service: No Current occupational status: unemployed Physical Exam ED Vital Signs: Vital Signs - 24 hr 04/29/23 14:41 04/29/23 15:08 04/29/23 15:12 Temperature Pulse Rate 101 H 101 H Respiratory Rate 14 16 Blood Pressure 170/102 H Pulse Oximetry 74 L 95 Oxygen Delivery Method Room Air Nasal Cannula Oxygen Flow Rate 2 Fraction of Inspired Oxygen 04/29/23 15:31 04/29/23 15:34 04/29/23 16:10 Temperature Pulse Rate 110 H 106 H Respiratory Rate 16 22 H 25 H Blood Pressure 167/92 H Pulse Oximetry 84 L 96 Oxygen Delivery Method Room Air Nasal Cannula Oxygen Flow Rate 6 Fraction of Inspired Oxygen 04/29/23 16:10 04/29/23 16:41 04/29/23 17:11 Temperature 98.0 F 98.0 F Pulse Rate 107 H 126 H Respiratory Rate 26 H 27 H 27 H Blood Pressure 163/96 H 213/112 H Pulse Oximetry 97 91 L Oxygen Delivery Method Nasal Cannula Nasal Cannula Oxygen Flow Rate 3 Fraction of Inspired Oxygen 04/29/23 17:58 04/29/23 18:01 04/29/23 19:51 Temperature 97.0 F 97.4 F Pulse Rate 107 H 107 H 106 H Respiratory Rate 27 H 25 H 22 H Blood Pressure 155/109 H 171/92 H 127/86 Pulse Oximetry 91 L 90 L 95 Oxygen Delivery Method CPAP CPAP CPAP Oxygen Flow Rate Fraction of Inspired Oxygen 40 40 04/29/23 19:57 04/29/23 21:52 04/29/23 22:52 Temperature 97.5 F 97.7 F Pulse Rate 105 H 102 H Respiratory Rate 14 22 H 18 Blood Pressure 146/92 H 136/95 H Pulse Oximetry 96 96 Oxygen Delivery Method CPAP CPAP Oxygen Flow Rate Fraction of Inspired Oxygen 04/29/23 23:41 04/29/23 23:51 Temperature 97.8 F Pulse Rate 107 H Respiratory Rate 20 20 Blood Pressure 143/89 H Pulse Oximetry 96 Oxygen Delivery Method CPAP Oxygen Flow Rate Fraction of Inspired Oxygen BMI result Body Mass Index 19.6 Appearance: Alert. Oriented X3. No acute distress. Eyes: Pupils equal, round and reactive to light. ENT: Pharynx dry MM with beefy red tongue and soft white plaques noted. hoarse voice and insp stridor noted states this is chronic for her no swelling noted on tongue or soft palate Neck: Normal inspection. Neck supple. CVS: Normal heart rate and rhythm. Pulses normal. Respiratory: No respiratory distress. Breath sounds slightly diminished. Abdomen: Soft and non-tender. Skin: Skin warm and dry. Normal skin color. poor skin turgor. Extremities: No lower extremity edema. No calf ttp Neuro: Oriented X 3. No motor deficit. No sensory deficit. Course Course Course Narrative: This is an RME: Additional HPI, ROS, PE not included below will be deferred to primary provider. Patient is a 57-year-old female who presents emergency department for evaluation of shortness of breath. She reports last chemo/ radiation October 2022 for cancer of the larynx. Has chronic hoarseness of the voice. Over the past 2 days she is developed significant shortness breath, body aches. Plan: Labs, CXR, viral testing Reevaluation(s) Reevaluation #1: patient desaturated to 77% likely mucous plug coughed then placed on NRB encouraged her to bring up mucous now she is 96% on 2L NC. Reevaluation #2: given the degree of mucous I am going to order IV steroids, ceftriaxone and lactic acidosis and cultures 346pm. Reevaluation #3: signed out to Dr. Bourgeois pending CT scans given racemic epi for her stridor currently on 3L NC Additional Reevaluation(s): 1645: [facility] closed to medical transfers, spoke to patient who agrees to transfer to [place]. She has had 2 more episodes of significant hypoxia with minimal movement. [facility] checking on facility placement. 1657: 25mcg Fentanyl, CPAP, 2.5mg Labetalol (as per patient not taking her antihypertensives at home). 174: Pt improved on CPAP and Fentanyl, spoke to Dr Hair at [facility], but wishes for the CT scan of neck to prepare. 1857: I discussed CT results with [facility] and I am awaiting the final decision by the coordinator of library services and ENT specialist. 1901: [facility] now informs me that they do not have ENT or thoracic coverage and will not be able to take the patient in transfer, Transfer center is now checking with [facility] in [place]. Pt remains stable on CPAP. 1908: [facility] has no critical beds and declines transfer. 4: [facility] informs me that they will be unable to accept this patient in transfer until 2299. 2155: I discussed all results, findings and the plan with the patient as well as her sister who are at bedside. 2330: I discussed the case with [facility] who accepts transfer to the ED, accepting physician is Dr. Cantu, patient remains stable and will be transported via ALS on CPAP. 60 critical care time. I personally attest to this time spent taking care of the patient. Medications Administered Discontinued Medications Generic Name Dose Route Start Last Admin Trade Name Freq PRN Reason Stop Dose Admin Acetaminophen 975 mg 04/29/23 15:10 04/29/23 15:33 Acetaminophen 325 Mg Tablet PO 04/29/23 15:11 975 mg ONCE ONE Administration Albuterol Sulfate 2.5 mg/ 0 mg 04/29/23 14:36 04/29/23 14:41 Albuterol/Ipratropium 3 ml INHALE 04/29/23 14:37 5 dose ONCE ONE Administration Epinephrine 0.5 ml 04/29/23 16:04 04/29/23 16:10 Racepinephrine Hcl 0.5 Ml Vial.Neb INHALE 04/29/23 16:05 0.5 ml ONCE ONE Administration Fentanyl 25 mcg 04/29/23 16:57 04/29/23 17:01 Fentanyl Citrate/Pf 100 Mcg/2 Ml Vial IVPUSH 04/29/23 16:58 25 mcg ONCE ONE Administration Protocol Fentanyl 25 mcg 04/29/23 17:41 04/29/23 17:53 Fentanyl Citrate/Pf 100 Mcg/2 Ml Vial IVPUSH 04/29/23 17:42 25 mcg ONCE ONE Administration Protocol Fentanyl 50 mcg 04/29/23 19:22 04/29/23 19:28 Fentanyl Citrate/Pf 100 Mcg/2 Ml Vial IVPUSH 04/29/23 19:23 50 mcg ONCE ONE Administration Protocol Sodium Chloride 1,000 mls @ 999 mls/hr 04/29/23 14:15 04/29/23 14:14 Ns IV 04/29/23 15:15 999 mls/hr .Q1H1M WILBERT Administration Ceftriaxone Sodium 1 gm/ 50 mls @ 100 mls/hr 04/29/23 15:16 04/29/23 17:12 Sodium Chloride IV 04/29/23 15:45 Infused ONCE ONE Infusion Iohexol 100 ml 04/29/23 17:36 04/29/23 17:36 Iohexol 350 Mg/Ml 100 Ml Infus..Btl IV 04/29/23 17:37 65 ml ONCE ONE Administration Labetalol HCl 2.5 mg 04/29/23 16:54 04/29/23 17:00 Labetalol Hcl 100 Mg/20 Ml Vial IVPUSH 04/29/23 16:55 2.5 mg ONCE ONE Administration Lidocaine/Diphenhydr/Alum/Mg/Simeth 10 ml 04/29/23 15:10 04/29/23 15:33 Mag&Al/Sim/Diphenhyd/Lidocaine 10 Ml Oral.Susp PO 04/29/23 15:11 10 ml ONCE ONE Administration Protocol Methylprednisolone Sodium Succinate 60 mg 04/29/23 15:16 04/29/23 15:33 Methylprednisolone Sod Succ 125 Mg/2 Ml Vial IVPUSH 04/29/23 15:17 60 mg ONCE ONE Administration Morphine Sulfate 4 mg 04/29/23 14:10 04/29/23 14:20 Morphine Sulfate 4 Mg/Ml Cartridge IVPUSH 04/29/23 14:11 4 mg ONCE ONE Administration Protocol Morphine Sulfate 4 mg 04/29/23 22:00 04/29/23 22:23 Morphine Sulfate 4 Mg/Ml Cartridge IVPUSH 04/29/23 22:01 4 mg ONCE ONE Administration Protocol Morphine Sulfate 4 mg 04/30/23 00:43 04/30/23 00:47 Morphine Sulfate 4 Mg/Ml Cartridge IVPUSH 04/30/23 00:44 4 mg ONCE ONE Administration Protocol Nystatin 400,000 unit 04/29/23 14:09 04/29/23 14:20 Nystatin Oral Susp 500,000 Unit/5 Ml Oral.Susp PO 04/29/23 14:10 400,000 unit ONCE ONE Administration Protocol Ondansetron HCl 4 mg 04/29/23 14:10 04/29/23 14:20 Ondansetron Hcl 4 Mg/2 Ml Vial IVPUSH 04/29/23 14:11 4 mg ONCE ONE Administration Medical Decision Making Medical Decision Making MDM Narrative: 57 yo female with PMH of cirrhosis, HTN, smoker, COPD who notes 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 IV steroids ordered. Differential Diagnosis Differential Diagnoses: The differential diagnosis associated with the presentation includes viral syndrome, pneumonia, thrush, VTE, malignancy Admission/Observation Consideration of admission/observation: Escalation of care including admission/observation considered planned admit Lab Data [facility] Lab Attestation statement: I reviewed the patient's lab results. 04/29/23 13:58 04/29/23 13:58 Labs: Lab Results 04/29/23 04/29/23 04/29/23 Range/Units 13:33 13:58 16:00 WBC 11.7 H (4.8-10.8) X10*3/uL RBC 4.49 (4.20-5.50) X10*6/uL Hgb 13.2 (12.0-16.0) g/dl Hct 41.3 (37.0-47.0) % MCV 92.0 (80.0-98.0) fL MCH 29.4 (27.0-33.0) pg MCHC 32.0 (31.0-35.0) g/dl RDW 14.0 (11.0-16.0) % Plt Count 281 D (160-400) X10*3/uL MPV 9.5 (9.4-12.3) fL Immature Gran % (Auto) 0.4 (0.0-0.4) % Neut % (Auto) 89.1 H (45-73) % Lymph % (Auto) 4.7 L (20-40) % [place] % (Auto) 5.1 (2-11) % Eos % (Auto) 0.4 (0-4) % Baso % (Auto) 0.3 (0-2) % Lymph # (Auto) 0.6 L (1.2-4.9) X10*3/uL [place] # (Auto) 0.6 (0.1-1.2) X10*3/uL Eos # (Auto) 0.1 (0.0-0.4) X10*3/uL Baso # (Auto) 0.0 (0.0-0.2) X10*3/uL Abs Immat Gran (auto) 0.05 H (0.00-0.03) X10*3/uL Absolute Neuts (auto) 10.4 H (2.0-8.3) x10*3/uL Absolute Nucleated RBC 0.000 (0.0-0.012) X10*3/uL Nucleated RBC % (auto) 0.0 (0.0-0.2) /100WBC PT 12.1 (11.1-13.3) SEC INR 1.0 (0.9-1.1) Sodium 133 L (135-145) mmol/L Potassium 4.0 (3.3-5.1) mmol/L Chloride 90 L (96-108) mmol/L Carbon Dioxide 33 H (22-29) mmol/L Anion Gap 14 (12-20) BUN 12 (9-16) mg/dL Creatinine 0.77 (0.5-1.4) mg/dL Estim Creat Clear Calc 62.3 Estimated GFR > 60 Random Glucose 131 H (60-115) mg/dL Lactic Acid 0.8 (0.5-2.0) mmol/L Calcium 10.5 H D (8.4-10.2) mg/dL Total Bilirubin 0.4 (0.0-1.0) mg/dL AST 21 (5-31) U/L ALT 15 (0-31) U/L Alkaline Phosphatase 102 (39-117) U/L Troponin I High Sens 3.5 (<3.5-17.0) ng/L B-Natriuretic Peptide 19 (<100) pg/mL Total Protein 8.0 (6.5-8.0) g/dL Albumin 4.3 (3.5-5.0) g/dL COVID-19 (ELY) Negative (Negative) COVID-19 Clin Com See Note Influenza Type A (RADHA) Negative (Negative) Influenza Type B (RADHA) Negative (Negative) Influenza A & B Note See Note Independent Interpretation I performed an independent interpretation of an: EKG and Plain X-Ray (normal ) Interpretation: Rate: 99 Rhythm: narrow regular [place]: normal hard to see p waves Normal QRS complex. ST T wave : inverted t wave V1, no ELIAS qTC: 405 prior studies: changed The study has been interpreted contemporaneously by me. EKG #2 Rate: 106 Rhythm: sinus tachycardia [place]: normal Normal P waves. Normal ZUNILDA. Normal QRS complex. ST T wave : no ELIAS, inverted V1 and V2 qTC: 419 prior studies: p waves more noticeable The study has been interpreted contemporaneously by me. . Radiology Impression Discussion of test interpretation with radiology: I have reviewed the radiologist's reading. External Record Review External record reviewed: Outpatient record Critical Care Time Critical Care Time Critical Care Time: Yes Total Critical Care Time: 60 Attestation: repeat nebs, IV morphine for pain I attest to this time spent taking care of the patient Discharge Plan Discharge Clinical Impression: Oral thrush, Acute exacerbation of chronic obstructive pulmonary disease, Hypoxia, Lobar pneumonia, Mucus plugging of bronchi Patient Disposition: Xfer Acute Care Hospital Transfer Details: Increased level of care, ENT specialist Prescriptions: No Action sertraline 100 mg tablet 100 mg PO DAILY acetaminophen 500 mg tablet 500 mg PO TID furosemide 20 mg tablet 20 mg PO DAILY propranolol 20 mg tablet 20 mg PO BID fluticasone propionate [Flovent HFA] 110 mcg/actuation HFA aerosol inhaler 2 puff INHALATION BID calcium carbonate-vitamin D3 600 mg-10 mcg (400 unit) tablet 1 tab PO BID multivitamin with folic acid [Daily-Andrei (with folic acid)] 400 mcg tablet 1 tab PO DAILY Interventions: Acute Care Transfer Worksheet (ED) Last Done: 04/30/23 00:57 Discharge Date/Time: 04/30/23 00:58
--- NOTE | 2023-04-29 12:52 | ECG_ITS ---
Test Reason : DYSPNEA Blood Pressure : / mmHG Vent. Rate : 099 BPM Atrial Rate : 000 BPM P-R Int : 000 ms QRS Dur : 078 ms QT Int : 316 ms P-R-T Axes : 000 020 058 degrees QTc Int : 405 ms Atrial fibrillation Abnormal ECG When compared with ECG of 06-FEB-2015 06:37, Atrial fibrillation has replaced Sinus rhythm Referred By: Melissa De La Torre Electronically Signed By:JUNIOR ROBLERO
[2023-04-29 13:45] LABS: Prothrombin Time 12.1 SEC (11.1-13.3)
[2023-04-29 13:55] LABS: COVID-19 Test Negative (Negative); IDNOW Serial# 08D9AD1C
[2023-04-29 13:58] LABS: IDNOW Serial# 152EDE1D; Influenza A Negative (Negative); Influenza B2 Negative (Negative)
--- NOTE | 2023-04-29 14:01 | PC.NURSE ---
20gIV placed in the right AC - labs obtained/sent to lab. pt presents w/ hoarseness in voice. pt c/o 12/28 thorat pain d/t pmh of cancer. no sob/wob noted at this time. respirations even and unlabored. plan of care ongoing.
[2023-04-29 14:03] LABS: MANUAL DIFF FLAG NO
[2023-04-29 14:05] LABS: Basophils Percent Auto 0.3 % (0-2); Eosinophils Absolute Auto 0.1 X10*3/uL (0.0-0.4); Eosinophils Percent Auto 0.4 % (0-4); Hematocrit 41.3 % (37.0-47.0); Hemoglobin 13.2 g/dl (12.0-16.0); Imm Gran Abs Auto 0.05 X10*3/uL (0.00-0.03); Imm Gran Pct Auto 0.4 % (0.0-0.4); Lymphocytes Absolute Auto 0.6 X10*3/uL (1.2-4.9); Lymphocytes Percent Auto 4.7 % (20-40); Mean Corpuscular Hemoglobin 29.4 pg (27.0-33.0); Mean Platelet Volume 9.5 fL (9.4-12.3); Monocytes Absolute Auto 0.6 X10*3/uL (0.1-1.2); Monocytes Percent Auto 5.1 % (2-11); Neutrophils Absolute Auto 10.4 x10*3/uL (2.0-8.3); Neutrophils Percent Auto 89.1 % (45-73); Platelet Count 281 X10*3/uL (160-400); Red Blood Count 4.49 X10*6/uL (4.20-5.50); White Blood Count 11.7 X10*3/uL (4.8-10.8)
[2023-04-29] MEDS: 0.9 % Sodium Chloride 1,000 ML 999 ML IV (14:14)
[2023-04-29] MEDS: Nystatin Oral Susp 500,000 UNIT/5 ML ORAL.SUSP 400000 UNIT PO (14:20)
[2023-04-29] MEDS: ondansetron HCL 4 MG/2 ML VIAL IVPUSH (14:20)
[2023-04-29] MEDS: Morphine Sulfate 4 MG/ML CARTRIDGE IVPUSH ×2 (14:20→22:23)
--- NOTE | 2023-04-29 14:24 | PC.NURSE ---
medication/IVF administered per provider order. pt waiting to go to CT at this time.
[2023-04-29 14:30] LABS: Alanine Aminotransferase 15 U/L (0-31); Albumin Level 4.3 g/dL (3.5-5.0); Alkaline Phosphatase 102 U/L (39-117); Anion Gap 14 (12-20); Aspartate Amino Transferase 21 U/L (5-31); B Type Natriuretic Peptide 19 pg/mL (<100); Bilirubin Total 0.4 mg/dL (0.0-1.0); Blood Urea Nitrogen 12 mg/dL (9-16); Calcium 10.5 mg/dL (8.4-10.2); Carbon Dioxide 33 mmol/L (22-29); Chloride 90 mmol/L (96-108); Creatinine Clr Calc Pharmacy 62.3; Estimated Glomerular Filt Rate > 60; Glucose Random 131 mg/dL (60-115); Sodium 133 mmol/L (135-145)
[2023-04-29 14:32] LABS: Troponin-I High Sensitivity 3.5 ng/L (<3.5-17.0)
--- NOTE | 2023-04-29 14:33 | ECG_ITS ---
Test Reason : REPEAT SOB Blood Pressure : / mmHG Vent. Rate : 106 BPM Atrial Rate : 106 BPM P-R Int : 176 ms QRS Dur : 074 ms QT Int : 316 ms P-R-T Axes : 000 023 060 degrees QTc Int : 419 ms possible atrial fibrillation with some intermittent P waves Abnormal ECG When compared with ECG of 29-APR-2023 13:22, No significant changes seen Referred By: Renu Dailey Electronically Signed By:JUNIOR ROBLERO
--- NOTE | 2023-04-29 14:35 | PC.NURSE ---
repeat ekg being performed by aren per dr. tyree barrera.
--- NOTE | 2023-04-29 14:37 | PC.NURSE ---
pt receiving breathing treatment via RT at this time.
[2023-04-29] MEDS: Albuterol Sulfate 2.5 MG, Albuterol/Iprat 2.5/0.5MG 3 ML 3 ML INHALE (14:41)
--- NOTE | 2023-04-29 15:09 | PC.NURSE ---
pt dropped to 74% on RA. no sob/wob noted. pt placed on 15L via nonrebreather. dr. clements now bedside. pt placed on 2L via NC. pt now resting at 95% via 2L NC. no sob/wob noted. pt able to answer questions w/o difficulty. pt waiting to go to CT at this time.
[2023-04-29] MEDS: Mag&Al/Sim/Diphenhyd/Lidocaine 10 ML ORAL.SUSP PO (15:33)
[2023-04-29] MEDS: methylPREDNISolone Sod Succ 125 MG/2 ML VIAL 60 MG IVPUSH (15:33)
[2023-04-29] MEDS: Acetaminophen 325 MG TABLET 975 MG PO (15:33)
--- NOTE | 2023-04-29 15:40 | PC.NURSE ---
patient awake and alert. skin pwd, resp even and labored. ST via tele currently at 113. patient oxygen level dropped back down to 84% on room air after being titrated off of O2. Oxygen reapplied at 6lpm via NC, deep breaths encouraged and O2 sat increased back to 95%. O2 titrated down to 3lpm via NC, O2 sat currently. Patient continues to c/o feeling like she cannot breath, IV steroids administered as ordered. tool maintenance technician to bedside for lab draw prior to abt administration.
[2023-04-29] MEDS: cefTRIAXone sodium 1 GM in 0.9 % Sodium Chloride 50 ML IV (16:05)
[2023-04-29] MEDS: Racepinephrine HCL 0.5 ML VIAL.NEB INHALE (16:10)
[2023-04-29 16:14] LABS: Lactic Acid 0.8 mmol/L (0.5-2.0)
--- NOTE | 2023-04-29 16:14 | PC.NURSE ---
patient moved to the main ED. report given to RN
[2023-04-29] MEDS: Labetalol HCL 100 MG/20 ML VIAL IVPUSH (17:00)
[2023-04-29] MEDS: fentaNYL citrate/PF 100 MCG/2 ML VIAL 25 MCG IVPUSH ×2 (17:01→17:53)
[2023-04-29] MEDS: iohexoL 350 MG/ML 100 ML INFUS..BTL IV (17:36)
[2023-04-29] MEDS: fentaNYL citrate/PF 100 MCG/2 ML VIAL 50 MCG IVPUSH (19:28)
--- NOTE | 2023-04-29 19:57 | MHC.EDTECH ---
This tech took over care of patient at 1900,hourly rounds and vitals completed, Patient is upset and was c-pap off,RT and RN at bedside. Call holt in reach
--- NOTE | 2023-04-29 20:30 | PC.NURSE ---
this rn assumed care of pt @ 1900. pt agitated does not want to wear cpap. this rn able to reeducate pt on inportance of cpap complaince. mnd to bedside to discuss plan of care
--- NOTE | 2023-04-29 21:53 | MHC.EDTECH ---
Patient was incont. of a large amount of urine, pure-wick was dislodged, patient was cleaned and bed linen was changed. A new pure wick placed and patient is clean and dry. patient repositioned to comfort and vitals taken
--- NOTE | 2023-04-29 23:53 | MHC.EDTECH ---
Hourly rounds and vitals completed, patient is resting comfortably at this time,call holt in reach
--- NOTE | 2023-04-30 00:24 | PC.NURSE ---
report provided to ems prior to transfer. this rn gave nurse to nurse report to shakeel angel in triage at [facility]. upon preparation for transfer pt requested help with restroom, pain medication, and a sip of water. pt assisted with restroom and sip of water pt medicated according to mar after discussion with dr tyler regarding pt request
[2023-04-30] MEDS: Morphine Sulfate 4 MG/ML CARTRIDGE IVPUSH (00:47)
--- NOTE | 2023-04-30 00:54 | MHC.EDTECH ---
Emptied 400MLS of yellow urine from suction canister.
== END 2023-04-30 00:58 | disposition short-term general hospital (02) ==
PROVIDERS: Emergency Medicine; Nurse Practitioner Family; Emergency Provider Student in an Organized Health Care Education/Training Program
DX: B37.0 Candidal stomatitis (principal); J44.1 Chronic obstructive pulmonary disease with (acute) exacerbation; R09.02 Hypoxemia; J18.1 Lobar pneumonia, unspecified organism; T17.890A Other foreign object in other parts of respiratory tract causing asphyxiation, initial encounter; R06.02 Shortness of breath; C32.9 Malignant neoplasm of larynx, unspecified; Z11.52 Encounter for screening for COVID-19; J44.9 Chronic obstructive pulmonary disease, unspecified; I10 Essential (primary) hypertension; F17.210 Nicotine dependence, cigarettes, uncomplicated; Z79.899 Other long term (current) drug therapy
CPT/HCPCS: 36415; 70360; 70491; 71046; 71275; 80053; 83605; 83880; 84484; 85025; 85610; 87040; 87502; 87635; 93005; 94640; 96365; 96375; 96376; 99285; J0696; J1920; J2270; J2405; J2930; J3010; Q9967

== ENCOUNTER → 2023-04-29 12:52 | Outpatient (BNV) | payer MEDICAID, SELFPAY | PROVIDERS: Emergency Provider Student in an Organized Health Care Education/Training Program; Visit Provider Internal Medicine | DX: I48.91 Unspecified atrial fibrillation (principal); R94.31 Abnormal electrocardiogram [ECG] [EKG] | CPT/HCPCS: 93010 ==

== ENCOUNTER 2023-06-14 13:55 | Outpatient (REF) | payer MEDICAID, SELFPAY ==
--- NOTE | ~2023-06-14 | MM_ITS ---
EXAMINATION: MM SCREENING DIGITAL BREAST TOMOSYNTHESIS, BILATERAL CLINICAL INFORMATION: Screening. Asymptomatic. The patient has a history of laryngeal cancer. COMPARISON: Mammography: This study is compared with prior exams dating back to 2019. TECHNIQUE: Digital breast tomosynthesis is performed in both the craniocaudal and mediolateral oblique views along with computer-aided detection (CAD). Synthesized 2D images are generated from the tomosynthesis. FINDINGS: There are scattered areas of fibroglandular density (ACR BI-RADS breast composition Category b). There is a central venous access port at the superior aspect of the right breast. Since the last mammogram from 2021, there has been a significant progressive decrease in breast size. This is owing to weight loss, likely related to the patient's treatment for her malignancy. There are no significant masses, abnormal calcifications, or other abnormalities. MM/MM tomosynthesis screening BI IMPRESSION: No mammographic evidence of malignancy. ASSESSMENT: BI-RADS BI-RADS 1 - Negative RECOMMENDATION: Routine annual mammography screening. 1 year F/U This examination should not preclude the clinical evaluation of a suspicious palpable abnormality. This patient's information was entered into a reminder system with a target due date for their next mammogram.
== END 2023-06-14 13:56 | disposition home or self-care (01) ==
LOC: HO.MAMMO 13:55
PROVIDERS: PCP Family Medicine; Visit Provider Family Medicine
DX: Z12.31 Encounter for screening mammogram for malignant neoplasm of breast (principal)
CPT/HCPCS: 77063; 77067

== ENCOUNTER → 2023-06-14 14:15 | Outpatient (BNV) | payer MEDICAID, SELFPAY | PROVIDERS: PCP Family Medicine; Visit Provider Radiology Diagnostic Radiology | DX: Z12.31 Encounter for screening mammogram for malignant neoplasm of breast (principal) | CPT/HCPCS: 77063; 77067 ==

== ENCOUNTER 2023-07-27 11:58 | Outpatient (REF) | payer MEDICAID, SELFPAY ==
[2023-07-27 13:15] LABS: MANUAL DIFF FLAG NO
[2023-07-27 13:37] LABS: Basophils Absolute Auto 0.1 X10*3/uL (0.0-0.2); Basophils Percent Auto 0.7 % (0-2); Eosinophils Absolute Auto 0.4 X10*3/uL (0.0-0.4); Eosinophils Percent Auto 5.1 % (0-4); Imm Gran Abs Auto 0.02 X10*3/uL (0.00-0.03); Imm Gran Pct Auto 0.3 % (0.0-0.4); Lymphocytes Absolute Auto 1.1 X10*3/uL (1.2-4.9); Lymphocytes Percent Auto 15.2 % (20-40); Mean Corpuscular HGB Conc 31.6 g/dl (31.0-35.0); Mean Corpuscular Hemoglobin 29.7 pg (27.0-33.0); Mean Corpuscular Volume 94.1 fL (80.0-98.0); Mean Platelet Volume 10.8 fL (9.4-12.3); Monocytes Absolute Auto 0.7 X10*3/uL (0.1-1.2); Monocytes Percent Auto 10.1 % (2-11); Neutrophils Absolute Auto 4.8 x10*3/uL (2.0-8.3); Neutrophils Percent Auto 68.6 % (45-73); Platelet Count 232 X10*3/uL (160-400); Red Blood Count 4.04 X10*6/uL (4.20-5.50); Red Cell Distribution Width 14.5 % (11.0-16.0)
[2023-07-27 14:22] LABS: Alanine Aminotransferase 10 U/L (0-31); Albumin Level 4.3 g/dL (3.5-5.0); Alkaline Phosphatase 109 U/L (39-117); Anion Gap 14 (12-20); Aspartate Amino Transferase 14 U/L (5-31); Bilirubin Direct < 0.2 mg/dL (0.0-0.5); Bilirubin Total 0.2 mg/dL (0.0-1.0); Blood Urea Nitrogen 19 mg/dL (9-16); Carbon Dioxide 32 mmol/L (22-29); Chloride 97 mmol/L (96-108); Cholesterol 166 mg/dL (<200); Estimated Glomerular Filt Rate > 60; Glucose Random 110 mg/dL (60-115); HDL Cholesterol 52 mg/dL (>40); LDL Cholesterol Calculated 91 mg/dL (<100); Potassium 4.1 mmol/L (3.3-5.1); Sodium 139 mmol/L (135-145); Total Protein 7.3 g/dL (6.5-8.0); Triglycerides 117 mg/dL (<150)
[2023-07-27 14:27] LABS: TSH reflex Free T4 2.27 uIU/mL (0.32-4.0); Vitamin D 25-OH Total 40.6 ng/mL (>30)
== END 2023-07-27 11:59 | disposition home or self-care (01) ==
LOC: HO.HHCL 11:58
PROVIDERS: Visit Provider Family Medicine
DX: R62.7 Adult failure to thrive (principal)
CPT/HCPCS: 36415; 80048; 80061; 80076; 82306; 84443; 85025

== ENCOUNTER 2024-01-27 16:55 | Outpatient (REF) | payer MEDICAID, SELFPAY ==
[2024-01-30 10:19] LABS: HPV 16,18/45 See PAP report
== END 2024-01-27 16:56 | disposition home or self-care (01) ==
LOC: HO.HHCLNP 16:55
PROVIDERS: Visit Provider Family Medicine
DX: Z12.4 Encounter for screening for malignant neoplasm of cervix (principal); Z11.51 Encounter for screening for human papillomavirus (HPV)
CPT/HCPCS: 87624; 88175